=== PATIENT | female | born 1985 | race Caucasian/White ===

== ENCOUNTER 2023-08-26 18:58 | Inpatient (IN) | payer BC, SELFPAY ==
[2023-08-26] VITALS (15 sets, daily range): BP systolic 146–172; BP diastolic 84–98; PULSE 69–83; BMI 40.3
[2023-08-26 17:16] LABS: Basophils Percent Auto 0.4 % (0.2-1.2); Eosinophils Absolute Auto 0.1 K/mm3 (0-0.3); Hematocrit 30.6 % (37.0-47.0); Hemoglobin 10.2 g/dL (12.0-15.0); Immature Granulocyte Percent A 2.6 % (0-0.5); Lymphocytes Absolute Auto 1.79 K/mm3 (0.9-3.2); Lymphocytes Percent Auto 15.8 % (18.3-44.2); Mean Corpuscular HGB Conc 33.3 g/dl (32-36); Mean Corpuscular Hemoglobin 30.1 pg (26-34); Mean Corpuscular Volume 90.3 fl (80-100); Mean Platelet Volume 11.4 fl (7.4-10.4); Monocytes Absolute Auto 0.7 K/mm3 (0.1-0.6); Monocytes Percent Auto 6.1 % (2.6-8.5); Neutrophils Absolute Auto 8.4 K/mm3 (1.3-6.7); Neutrophils Percent Auto 74.1 % (45.5-73.1); Platelet Count Result 183 k/mm3 (150-375); Red Blood Count 3.39 M/mm3 (4.2-5.4); Red Cell Distribution Width 14.4 % (11.5-14.5); White Blood Count 11.4 K/mm3 (4.5-10.0)
[2023-08-26 17:23] LABS: Appearance Urine Cloudy (Clear); Bacteria Urine 1+ /hpf; Bilirubin Urine Negative (Negative); Blood Urine Negative (Negative); Color Urine Yellow (Yellow); Glucose Urine UA Negative (Negative); Ketones Urine Negative (Negative); Leukocyte Esterase Ur 3+ LEU/UL (NEGATIVE); Nitrate Urine Negative (Negative); Non Pathogenic Casts 0-2; Protein Urine Trace mg/dL (Negative); RBC Urine 0-2 /hpf (0-2); Specific Grav Ur 1.019 (1.001-1.035); Squamous Epithelial Cell Urine Few /hpf (Few); Urobilinogen Urine 0.2 mg/dL (<2.0); pH Urine 6.5 (5.0-9.0)
[2023-08-26 17:24] LABS: Add Urine Microscopic? YES
[2023-08-26 17:25] LABS: Alanine Aminotransferase 28 U/L (6-35); Albumin Level 3.5 g/dL (3.5-5.1); Alkaline Phosphatase 150 U/L (38-126); Anion Gap 4 mmol/L (8-16); Aspartate Amino Transferase 29 U/L (14-36); Bilirubin,Total 0.4 mg/dL (0.2-1.3); Blood Urea Nitrogen 11 mg/dL (7-17); Calcium 9.3 mg/dL (8.4-10.2); Carbon Dioxide 24 mmol/L (22-30); Chloride 104 mmol/L (98-107); Creatinine Urine 117.8 mg/dL; Estimated Glomerular Filt Rate > 60; Glucose 85 mg/dL (65-110); Potassium 3.7 mmol/L (3.4-5.0); Sodium 132 mmol/L (137-145); Total Protein Urine Random 19 mg/dL; Ur Ttl Prot Creatinine Ratio 0.16 mg/mg (0-0.20); Uric Acid 5.7 mg/dL (2.5-7.5)
[2023-08-26] MEDS: NIFEdipine 30 MG TAB.ER.24 PO (19:02)
--- NOTE | 2023-08-26 19:25 | LDADM ---
This patient, Isela Nowak, was admitted to [facility] on 08/26/23 at 18:58. Plans for labor, pain management and were discussed with patient. Patient/family oriented to hospital policies and general routines including ID bracelet, bed and alarms, visiting hours, pain management, procedures, bathroom and other care routines, personal items, smoking policy, room service/diet and guest tray routines, infant security routines, and visiting hours. Patient/Family are encouraged to report perceived risks to care and to ask questions if they do not understand what they are told or what they should do. See OBIX for further documentation.
[2023-08-26 20:41] LABS: Glucose Point of Care 73 mg/dl (65-105)
[2023-08-26] MEDS: SODIUM CHLORIDE 0.9% IV 250 ML 100 ML IV CONT (21:44)
[2023-08-26] MEDS: cefTRIAXone 1 GM in DEXTROSE 5% IN WATER 50 ML IVPB (21:46)
--- NOTE | 2023-08-26 21:50 | PC.NURSE ---
1858: Dr. Chowdhury notified of pt status, orders obtained. instructed to admit pt with plans of a repeat c/s at 12:30pm on 08/27/23. 2030: instructed by Dr. Chowdhury to check blood pressures q 1 hour as long as under 160/110. instructed to let patient eat dinner and give bedtime dose of insulin, instructed to make pt NPO after 0000. instructed to check blood sugar in AM and hold morning insulin.
[2023-08-26] MEDS: INSULIN HUMAN NPH (*BKC) 100 UNITS/ML 10 UNITS SUB-Q (22:53)
[2023-08-27] VITALS (174 sets, daily range): BP systolic 86–171; BP diastolic 42–104; PULSE 44–124; RESP 14–20; TEMP 36.2–37.1; O2SAT 88–100
[2023-08-27] MEDS: LACTATED RINGERS 1,000 ML 75 ML IV CONT ×2 (01:04→12:22)
[2023-08-27] MEDS: MAGNESIUM SULF 4 GM/WATER100ML 4 GM/100 ML BAG IVPB (01:04)
[2023-08-27] MEDS: MAGNESIUM SULF 20GM/WATER500ML 500 ML 50 MG IV CONT ×2 (01:36→11:30)
[2023-08-27 07:01] LABS: Glucose Point of Care 85 mg/dl (65-105)
--- NOTE | 2023-08-27 07:46 | PM.IMHP ---
H&P: HPI History of Present Illness Date/Time: 08/27/23 07:46 Chief Complaint: preeclampsia with severe features Review of Systems Review of Systems: All systems reviewed & are unremarkable except as noted in HPI and below PMFSH Family History Family History Grandparent Hypertension Father Hypertension Grandparent Bladder cancer Mother Lung cancer Social History Social History Smoking status: Never smoker Substance use: never Lack of Transportation: No Lack of Food: Never True Current Housing: I Have Housing Concerned About Future Housing: No Difficulty Paying Gas/Electric Bills: No Difficulty Paying for Meds: No Currently Unemployed: No Education: Master's Degree or Higher Difficulty w/ Childcare or Family Care: No Spiritual care concerns: No Meds Home Medications and Allergies Home Medications Medication Instructions Recorded Confirmed Type prenat.vits,drea,ihl-[id number] 1 tablet BID 08/20/23 08/26/23 History sertraline 100 mg tablet (Zoloft) 100 mg PO DAILY 08/20/23 08/26/23 History insulin NPH isoph U-100 human 100 5 - 10 unit subcut DAILY 08/26/23 08/26/23 History unit/mL subcutaneous suspension (Humulin N NPH U-100 Insulin (isophane susp)) Allergies Allergy/AdvReac Type Severity Reaction Status Date / Time No Known Allergies Allergy Mild Verified 12/16/18 12:32 Vital Signs Vital Signs - 24 hr 08/26/23 17:08 08/26/23 17:16 08/26/23 17:31 Temperature Pulse Rate 77 71 83 Respiratory Rate Blood Pressure 158/98 H 161/84 H 151/86 H Pulse Oximetry Oxygen Delivery 08/26/23 17:46 08/26/23 18:00 08/26/23 18:18 Temperature Pulse Rate 80 82 77 Respiratory Rate Blood Pressure 148/86 H 157/86 H 166/91 H Pulse Oximetry Oxygen Delivery 08/26/23 18:31 08/26/23 18:46 08/26/23 19:39 Temperature Pulse Rate 77 77 69 Respiratory Rate Blood Pressure 148/91 H 159/89 H 161/92 H Pulse Oximetry Oxygen Delivery 08/26/23 19:49 08/26/23 20:01 08/26/23 20:16 Temperature Pulse Rate 73 78 76 Respiratory Rate Blood Pressure 159/93 H 172/97 H 146/86 H Pulse Oximetry Oxygen Delivery 08/26/23 21:30 08/26/23 22:31 08/26/23 23:01 Temperature Pulse Rate 69 74 74 Respiratory Rate Blood Pressure 150/98 H 158/98 H 150/96 H Pulse Oximetry Oxygen Delivery 08/27/23 00:01 08/27/23 00:07 08/27/23 00:16 Temperature Pulse Rate 86 86 75 Respiratory Rate Blood Pressure 171/99 H Pulse Oximetry Oxygen Delivery 08/27/23 00:31 08/27/23 00:34 08/27/23 01:01 Temperature Pulse Rate 81 85 75 Respiratory Rate Blood Pressure 162/104 H 167/93 H 155/87 H Pulse Oximetry Oxygen Delivery 08/27/23 01:16 08/27/23 01:19 08/27/23 01:24 Temperature Pulse Rate 86 Respiratory Rate Blood Pressure 153/83 H Pulse Oximetry 97 95 Oxygen Delivery 08/27/23 01:29 08/27/23 01:31 08/27/23 01:34 Temperature Pulse Rate 87 Respiratory Rate Blood Pressure 148/89 H Pulse Oximetry 96 96 Oxygen Delivery 08/27/23 01:39 08/27/23 01:44 08/27/23 01:46 Temperature Pulse Rate 88 Respiratory Rate Blood Pressure 142/76 H Pulse Oximetry 95 96 Oxygen Delivery 08/27/23 01:49 08/27/23 01:54 08/27/23 01:59 Temperature Pulse Rate Respiratory Rate Blood Pressure Pulse Oximetry 95 96 95 Oxygen Delivery 08/27/23 02:01 08/27/23 02:04 08/27/23 02:09 Temperature Pulse Rate 91 Respiratory Rate Blood Pressure 124/77 Pulse Oximetry 94 94 Oxygen Delivery 08/27/23 02:14 08/27/23 02:19 08/27/23 02:24 Temperature Pulse Rate Respiratory Rate Blood Pressure Pulse Oximetry 94 94 95 Oxygen Delivery 08/27/23 02:29 08/27/23 02:39 08/27/23 02:44 Temperature Pulse Rate Respiratory Rate Blood Pressure Pulse Oxime
[2023-08-27 08:27] LABS: Glucose Point of Care 94 mg/dl (65-105)
[2023-08-27] MEDS: SERTRALINE HCL 50 MG TABLET 100 MG PO (08:29)
[2023-08-27 10:57] LABS: Rapid Plasma Reagin Non-Reactive (NonReactive)
--- NOTE | 2023-08-27 11:14 | WPDANESEPPF ---
Anes - Initial Pre Proc Eval Procedure: Operation Date: 08/27/23 12:00 Proposed Procedures p Section - Minal Chowdhury MD Date/Time: 08/27/23 11:14 Surgeon: Minal Chowdhury MD Pre Op Diagnosis: PI Evaluation Patient Data Age: 38 Gender: F Height: 1.57 m Weight: 100 kg Last Vital Signs Temp 37.1 C 08/27/23 08:32 Pulse 85 08/27/23 11:01 Resp 18 08/27/23 01:16 BP 151/95 H 08/27/23 11:01 Pulse Ox 97 08/27/23 11:10 O2 Del Method Room Air 08/26/23 19:35 Allergies Allergy/AdvReac Type Severity Reaction Status Date / Time No Known Allergies Allergy Mild Verified 12/16/18 12:32 Home Medications Medication Instructions Recorded Confirmed Type prenat.vits,drea,fyi-tzkh-dexxu 1 tablet BID 08/20/23 08/26/23 History sertraline 100 mg tablet (Zoloft) 100 mg PO DAILY 08/20/23 08/26/23 History insulin NPH isoph U-100 human 100 5 - 10 unit subcut DAILY 08/26/23 08/26/23 History unit/mL subcutaneous suspension (Humulin N NPH U-100 Insulin (isophane susp)) Laboratory Tests 08/26/23 08/26/23 08/26/23 17:05 19:24 20:37 WBC 11.4 H K/mm3 (4.5-10.0) RBC 3.39 L M/mm3 (4.2-5.4) Hgb 10.2 L g/dL (12.0-15.0) Hct 30.6 L % (37.0-47.0) MCV 90.3 fl (80-100) MCH 30.1 pg (26-34) MCHC 33.3 g/dl (32-36) RDW 14.4 % (11.5-14.5) Plt Count 183 k/mm3 (150-375) MPV 11.4 H fl (7.4-10.4) Immature Gran % (Auto) 2.6 H % (0-0.5) Neut % (Auto) 74.1 H % (45.5-73.1) Lymph % (Auto) 15.8 L % (18.3-44.2) Kidder % (Auto) 6.1 % (2.6-8.5) Eos % (Auto) 1.0 % (0-4.4) Baso % (Auto) 0.4 % (0.2-1.2) Lymph # (Auto) 1.79 K/mm3 (0.9-3.2) Kidder # (Auto) 0.7 H K/mm3 (0.1-0.6) Eos # (Auto) 0.1 K/mm3 (0-0.3) Baso # (Auto) 0.0 K/mm3 (0.0-0.1) Abs Immat Gran (auto) 0.30 H K/mm3 (0.00-0.031) Absolute Neuts (auto) 8.4 H K/mm3 (1.3-6.7) Absolute Nucleated RBC 0.0 K/mm3 (0.0-0.012) Nucleated RBC % 0.0 % (0.0-0.2) Sodium 132 L mmol/L (137-145) Potassium 3.7 mmol/L (3.4-5.0) Chloride 104 mmol/L (98-107) Carbon Dioxide 24 mmol/L (22-30) Anion Gap 4 L mmol/L (8-16) BUN 11 mg/dL (7-17) Creatinine 0.60 L mg/dL (0.7-1.0) Estim Creat Clear Calc Not Reportable Estimated GFR > 60 (59 - ) Glucose 85 mg/dL (65-110) POC Capillary Glucose 73 mg/dl (65-105) Uric Acid 5.7 mg/dL (2.5-7.5) Calcium 9.3 mg/dL (8.4-10.2) Total Bilirubin 0.4 mg/dL (0.2-1.3) AST 29 U/L (14-36) ALT 28 U/L (6-35) Alkaline Phosphatase 150 H U/L (38-126) Total Protein 7.0 g/dL (6.3-8.2) Albumin 3.5 g/dL (3.5-5.1) Urine Color Yellow (Yellow) Urine Appearance Cloudy H (Clear) Urine pH 6.5 (5.0-9.0) Ur Specific [place] 1.019 (1.001-1.035) Urine Protein Trace mg/dL (Negative) Urine Glucose (UA) Negative mg/dL (Negative) Urine Ketones Negative mg/dL (Negative) Ur Blood (Man) Negative (Negative) Urine Nitrate Negative (Negative) Urine Bilirubin Negative (Negative) Urine Urobilinogen 0.2 mg/dL (<2.0) Ur Leukocyte Esterase 3+ H NIDIA/UL (NEGATIVE) Urine RBC 0-2 /hpf (0-2) Urine WBC 11-20 H /hpf (0-3) Ur Squamous Epith Cells Few /hpf (Few) Urine Bacteria 1+ H /hpf Urine Casts 0-2 U Random Total Protein 19 mg/dL Urine Creatinine 117.8 mg/dL Protein/Creat Ratio 2 0.16 mg/mg (0-0.20) RPR Non-reactive (NonReactive) Blood Ty
[2023-08-27] MEDS: ceFAZolin 2 GM/D5W 50 ML 2 GM/50 ML BAG IVPB (12:26)
--- NOTE | 2023-08-27 12:26 | PM.IMHP ---
H&P: HPI History of Present Illness Date/Time: 08/27/23 12:26 Chief Complaint: Preeclampsia Narrative: 38-year-old multiparous female with previous and preeclampsia. We have agreed to perform today. She understands the risks. She understands that injuries may occur as result in hospitalization, more surgery, severe illness. She understands risk of hemorrhage infection. She denies any chest pain shortness of breath. She denies any nausea, vomiting, fevers, chills. She denies any headaches, blurry vision, epigastric pain. Review of Systems Review of Systems: All systems reviewed & are unremarkable except as noted in HPI and below Constitutional: Constitutional: Denies chills, Denies fatigue, Denies fever(s) and Denies weakness Eyes: Eyes: Denies blurry vision, Denies change in vision, Denies loss of peripheral vision, Denies loss of vision, Denies other visual disturbances and Denies eye pain ENT: Denies vertigo, Denies dizziness, Denies hearing loss, Denies mouth pain, Denies nasal obstruction, Denies neck mass and Denies neck pain Cardiovascular: Cardiovascular: Denies chest pain, Denies diaphoresis, Denies syncope, Denies leg edema and Denies dyspnea Respiratory: Respiratory: Denies chest congestion, Denies cough, Denies hemoptysis, Denies dyspnea and Denies wheezing Gastrointestinal: Gastrointestinal: Denies abdominal pain, Denies constipation, Denies diarrhea, Denies nausea and Denies vomiting Genitourinary: Genitourinary: Denies hematuria, Denies change in libido, Denies nocturia, Denies genital lesions, Denies flank pain and Denies urinary urgency Musculoskeletal: Musculoskeletal: Denies abnormal gait, Denies back pain, Denies myalgias, Denies arthralgias, Denies joint swelling, Denies muscle weakness and Denies neck pain Integumentary/Breasts: Skin/Breast: Denies swelling, Denies breast pain, Denies breast mass, Denies dry skin, Denies nipple discharge, Denies unusual bruising and Denies jaundice Neurologic: Denies Neuro-related abnormal movements, Denies Abnormal speech present, Denies abnormal gait, Denies behavioral changes, Denies confusion, Denies vertigo, Denies dizziness, Denies syncope, Denies loss of vision, Denies memory loss, Denies convulsions and Denies weakness Psychiatric: Psychiatric: Denies abnormal sleep pattern, Denies behavioral changes, Denies change in libido, Denies confusion, Denies depression, Denies anhedonia and Denies memory loss Endocrine: Endocrine: Reports no additional endocrine complaints, Denies change in libido and Denies fatigue Hematologic/Lymphatic: Hematologic/Lymphatic: Reports no additional hematologic/lymphatic complaints Allergic/Immunologic: Allergic/Immunologic: Reports no additional allergic/immunologic complaints and Denies wheezing PMFSH Past Medical History Medical History (Updated 08/27/23 @ 11:15 by Dean Juarez MD) Diabetes in HTN (hypertension) Morbid obesity Surgical History Surgical History (Updated 08/27/23 @ 12:28 by Minal Chowdhury MD) History of section Family History Family History Grandparent Hypertension Father Hypertension Grandparent Bladder cancer Mother Lung cancer Social History Social History Smoking status: Never smoker Substance use: never Lack of Transportation: No Lack of Food: Never True Current Housing: I Have Housing Concerned About Future Housing: No Difficulty Paying Gas/Electric Bills: No Difficulty Paying for Meds: No Currently Unemployed: No Education: Master's Degree or Higher Difficulty w/ Childcare or Family Care: No Spiritual care concerns: No Meds Home Medications and Allergies Home Medications Medication Instructions Recorded Confirmed Type prenat.vits,drea,vyv-kcji-xrsrx 1 tablet BID 08/20/23 08/26/23 History sertraline 100 mg t
--- NOTE | 2023-08-27 12:28 | WPDHPUPDATE1 ---
History and Physical Update Update Date/Time: 08/27/23 12:28 History and Physical has been reviewed, including an updated exam of the patient. There are NO changes in the patient's condition. Risks, benefits, and alternatives have been discussed and questions answered. Patient agrees to proceed with procedure.
[2023-08-27] MEDS: KETOROLAC 30 MG/ML VIAL (*BKC) 15 MG IV PUSH (13:22)
--- NOTE | 2023-08-27 13:26 | P.OP_ITS ---
Procedure Note - Detailed Date of Procedure 08/27/23 Pre-op Diagnosis PIH Evaluation, preeclampsia,. previous Post-op Diagnosis Same Procedure Performed Low-transverse section Surgeon Minal Chowdhury MD Anesthesia Spinal Findings Normal gestational maternal anatomy, average size infant, normal Apgars. Description of Procedure The patient was taken the operating room. She was prepped and draped in dorsal supine position with a leftward tilt. This was done after spinal anesthetic was applied. A low-transverse skin incision was made and carried down till of the fascia with the knife. The fascial incision was made with the knife. The fasci al incision was extended laterally with De La Torre scissors. The fascia was tented upward superiorly and inferiorly the rectus muscles were dissected off bluntly. The rectus muscles were the midline. The preperitoneal fat and peritoneum were dissected open bluntly at the superior aspect of the rectus muscles. The peritoneal incision was extended superior and inferior with good position of bladder. The uterine incision was made with a scalpel down to the level of the amniotic cavity. The amniotic cavity was entered bluntly. The infant was delivered. The cord was clamped and cut and the infant was handed off to waiting pediatric staff. Cord bloods were obtained. The placenta was removed manually. The uterus was exteriorized. The uterus was cleared of all clots, debris and membranes. The uterus was closed in 0 Vicryl running lock fashion. An imbricating over a was placed along the incision line as well. The uterus was returned to the abdomen. The gutters were cleared of all clots and debris. The fascia was closed with 0 Vicryl running fashion. The subcutaneous tissue was irrigated pinpoint bleeders were cauterized. The skin was closed with subcuticular absorbable peng. The skin incision line was covered with glue. The patient tolerated the procedure well. She has taken recovery room in stable condition. Sponge lap and needle counts were correct x2. Urine Output 400 Complications No immediate complications Condition Stable Disposition PACU
[2023-08-27] MEDS: KETOROLAC 30 MG/ML VIAL (*BKC) IV PUSH (17:40)
--- NOTE | 2023-08-27 18:08 | OBPPTRN ---
1635-Patient transferred to post room #291 via stretcher. Support person present. Oriented to unit, room, information board, rooming in, admission packet and security measures. Patient verbalizes understanding.
[2023-08-27] MEDS: POLYSACCHARIDE IRON COMPLEX 150 MG CAPSULE PO (19:40)
[2023-08-27] MEDS: DOCUSATE SODIUM 100 MG CAPSULE PO (19:40)
[2023-08-27] MEDS: NIFEdipine 30 MG TAB.ER.24 60 MG PO (19:41)
[2023-08-27] MEDS: LABETALOL HCL INJ 100 MG/20 ML VIAL 20 MG IV PUSH (19:41)
[2023-08-27] MEDS: MAGNESIUM SULF 20GM/WATER500ML 500 ML 2 MG (21:03)
[2023-08-27] MEDS: DEXTROSE 5%/0.45% SOD CHL 1,000 ML 75 ML IV CONT (21:03)
[2023-08-27] MEDS: HYDROcodone/acetaminophen (*CRX) 10-325 MG TABLET 1 TAB PO (21:30)
[2023-08-28] MEDS: HYDROcodone/acetaminophen (*CRX) 10-325 MG TABLET 1 TAB PO ×2 (03:52→17:30)
[2023-08-28] MEDS: IBUPROFEN 600 MG TABLET PO ×3 (03:52→23:08)
[2023-08-28 04:00] VITALS: BP 143/93; PULSE 96; RESP 16; TEMP 36.7; O2SAT 100
--- NOTE | 2023-08-28 05:47 | PM.OBPNVD ---
OB - PN: Subj Subjective Date/time seen: 08/28/23 05:47 Interval history: pp day 1 rpt section preeclampsia with severe features blood pressures labile no complaints no flatus yet magnesium sulfate x 24 hours post delivery OB - PN: Obj Data Labs 08/26/23 17:05 08/26/23 17:05 Labs: Laboratory Results - last 24 hr 08/26/23 08/26/23 08/27/23 19:24 22:52 08:25 POC Capillary Glucose 85 94 RPR Non-reactive OB - PN A/P Plan day: 1 Plan: routine care Time Spent With Patient Time: Total time spent is greater than 50% in coordination of care (as documented) at patient's floor/unit and/or counseling patient: Review of Systems Review of Systems: All systems reviewed & are unremarkable except as noted in HPI and below Exam Const: General: cooperative, healthy appearing and comfortable Chest: Chest palpation & inspection: normal inspection of the chest Resp: Effort & Inspection: normal respiratory effort Cardio: Rate: regular rate Rhythm: regular rhythm GI: Other: incision CDI Skin: General skin exam: normal color Neuro: General: patient oriented x3 Extrem: Right lower extremity: normal to inspection Left lower extremity: normal to inspection Psych: Appearance: grossly normal
[2023-08-28 05:54] LABS: Basophils Percent Auto 0.4 % (0.2-1.2); Eosinophils Percent Auto 0.3 % (0-4.4); Hematocrit 32.8 % (37.0-47.0); Hemoglobin 10.5 g/dL (12.0-15.0); Immature Granulocyte Absolute 0.17 K/mm3 (0.00-0.031); Immature Granulocyte Percent A 1.6 % (0-0.5); Lymphocytes Absolute Auto 1.19 K/mm3 (0.9-3.2); Lymphocytes Percent Auto 11.5 % (18.3-44.2); Mean Corpuscular Hemoglobin 29.7 pg (26-34); Mean Corpuscular Volume 92.9 fl (80-100); Monocytes Absolute Auto 0.6 K/mm3 (0.1-0.6); Neutrophils Absolute Auto 8.3 K/mm3 (1.3-6.7); Neutrophils Percent Auto 80.2 % (45.5-73.1); Platelet Count Result 190 k/mm3 (150-375); Red Blood Count 3.53 M/mm3 (4.2-5.4); Red Cell Distribution Width 14.5 % (11.5-14.5); White Blood Count 10.4 K/mm3 (4.5-10.0)
[2023-08-28 07:10] VITALS: BP 135/89; PULSE 96; RESP 18; TEMP 36.5; O2SAT 97
[2023-08-28] MEDS: MAGNESIUM SULF 20GM/WATER500ML 500 ML 50 MG IV CONT (08:30)
[2023-08-28] MEDS: MULTIVIT/MIN/PREN/FOL AC/IRON TABLET 1 TAB PO (08:43)
[2023-08-28] MEDS: DOCUSATE SODIUM 100 MG CAPSULE PO ×2 (08:43→17:30)
[2023-08-28] MEDS: SERTRALINE HCL 50 MG TABLET 100 MG PO (08:43)
[2023-08-28] MEDS: NIFEdipine 30 MG TAB.ER.24 60 MG PO (08:43)
[2023-08-28] MEDS: DEXTROSE 5%/0.45% SOD CHL 1,000 ML 75 ML IV CONT (09:02)
[2023-08-28 10:00] VITALS: BP 135/89; PULSE 96; RESP 18; TEMP 36.5; O2SAT 97
[2023-08-28 11:20] VITALS: BP 144/85; PULSE 98; RESP 16; TEMP 36.8; O2SAT 98
--- NOTE | 2023-08-28 11:40 | WPDANLDPN2 ---
Anes-Prog Note L&D Date/Time: 08/28/23 11:40 Comfortable throughout: section Neuraxial method: epidural Neuro status: Neuro function grossly intact.catheter still in place. plan to remove at 1300 Cardiovascular status: normal Respiratory status: normal Airway patency: baseline Mental status: baseline Post-Op hydration status: normal Vital Signs: Last Vital Signs Temp 36.7 C 08/28/23 04:00 Pulse 96 08/28/23 04:00 Resp 16 08/28/23 04:00 BP 143/93 H 08/28/23 04:00 Pulse Ox 100 08/28/23 04:00 O2 Del Method Room Air 08/28/23 04:00 O2 Flow Rate 1 08/27/23 14:05 Pain score (VAS): 0 I/O: Intake & Output 08/27/23 08/28/23 08/28/23 23:59 07:59 15:59 Intake Total 240 2000 1000 Output Total 1700 3350 Balance -1460 -1350 1000 Post-procedural complaints: none Patient feedback: Patient satisfied with anesthetic care.
--- NOTE | 2023-08-28 11:40 | WPDANLDNPN2 ---
Anes-Prog Note L&D-Neuraxial Date/Time: 08/28/23 11:40 Neuraxial medications: epidural PF morphine Opiod-related complaints: none Patient feedback: Patient satisfied with post-operative pain management.
--- NOTE | 2023-08-28 14:00 | PC.NURSE ---
Urinary catheter removed.
[2023-08-28 15:40] VITALS: BP 148/95; PULSE 87
[2023-08-28 19:15] VITALS: BP 145/87; PULSE 82; TEMP 35.9
[2023-08-28] MEDS: HYDROcodone/acetaminophen (*CRX) 5-325 MG TABLET 1 TAB PO (23:07)
[2023-08-29] VITALS (8 sets, daily range): BP systolic 130–160; BP diastolic 80–104; PULSE 68–90; RESP 16–18; TEMP 35.8–37.3; O2SAT 97–100
[2023-08-29] MEDS: HYDROcodone/acetaminophen (*CRX) 10-325 MG TABLET 1 TAB PO (05:57)
[2023-08-29] MEDS: IBUPROFEN 600 MG TABLET PO ×2 (05:57→16:24)
[2023-08-29] MEDS: NIFEdipine 30 MG TAB.ER.24 60 MG PO ×2 (09:17→21:54)
[2023-08-29] MEDS: MULTIVIT/MIN/PREN/FOL AC/IRON TABLET 1 TAB PO (09:17)
[2023-08-29] MEDS: SERTRALINE HCL 50 MG TABLET 100 MG PO (09:17)
[2023-08-29] MEDS: DOCUSATE SODIUM 100 MG CAPSULE PO ×2 (09:17→16:23)
--- NOTE | 2023-08-29 09:40 | PM.OBPNVD ---
OB - PN: Subj Subjective Date/time seen: 08/29/23 09:40 Interval history: pp day 2 rpt section preeclampsia with severe features \denies negrete, visual changes, epigastric pain blood pressures labile no complaints flatus present OB - PN: Obj Data Labs 08/28/23 03:30 08/26/23 17:05 OB - PN A/P Plan day: 2 Plan: discharge home Time Spent With Patient Time: Total time spent is greater than 50% in coordination of care (as documented) at patient's floor/unit and/or counseling patient: Review of Systems Review of Systems: All systems reviewed & are unremarkable except as noted in HPI and below Exam Const: General: cooperative and healthy appearing Chest: Chest palpation & inspection: normal inspection of the chest Resp: Effort & Inspection: normal respiratory effort Cardio: Rate: regular rate Rhythm: regular rhythm GI: Other: Incision CDI Skin: General skin exam: normal color Neuro: General: patient oriented x3 Extrem: Right lower extremity: edema Left lower extremity: edema Psych: Appearance: grossly normal
[2023-08-29] MEDS: HYDROcodone/acetaminophen (*CRX) 5-325 MG TABLET 1 TAB PO (16:23)
[2023-08-29] MEDS: LANOLIN (LANSINOH) 7.5 GM CREAM 1 APPLIC TOPICAL (16:24)
[2023-08-30 04:30] VITALS: BP 141/94; PULSE 73; RESP 16; TEMP 36.4; O2SAT 97
[2023-08-30] MEDS: IBUPROFEN 600 MG TABLET PO (08:20)
[2023-08-30] MEDS: DOCUSATE SODIUM 100 MG CAPSULE PO (08:21)
[2023-08-30] MEDS: MULTIVIT/MIN/PREN/FOL AC/IRON TABLET 1 TAB PO (08:21)
[2023-08-30] MEDS: HYDROcodone/acetaminophen (*CRX) 10-325 MG TABLET 1 TAB PO (08:22)
[2023-08-30] MEDS: SERTRALINE HCL 50 MG TABLET 100 MG PO (08:22)
[2023-08-30] MEDS: NIFEdipine 30 MG TAB.ER.24 60 MG PO (08:25)
[2023-08-30 08:35] VITALS: BP 144/87; PULSE 85; RESP 18; TEMP 36.3; O2SAT 100
--- NOTE | 2023-08-30 08:44 | PM.OBPNVD ---
OB - PN: Subj Subjective Date/time seen: 08/30/23 08:44 Interval history: pp day 2 rpt section preeclampsia with severe features \denies negrete, visual changes, epigastric pain blood pressures labile no complaints flatus present Patient comments: no complaints, pain well controlled, incisional pain, tolerating diet and flatus present OB - PN: Obj Data Labs 08/28/23 03:30 08/26/23 17:05 OB - PN A/P Plan day: 4 Plan: routine care, discharge home and other Comments: Incision check in one week. Given precautions Time Spent With Patient Time: Total time spent is greater than 50% in coordination of care (as documented) at patient's floor/unit and/or counseling patient: Exam Const: General: comfortable, no acute distress and alert Resp: Effort & Inspection: normal respiratory effort Auscultation: no crackles, no rales and no rhonchi Cardio: Rate: regular rate Heart sounds: no click, no murmurs and no rubs GI: Inspection: non-distended GI Palp: No Tenderness to palpation present (GI) Auscultation: normal bowel sounds Other: Incision - CDI Extrem: General: normal to inspection, no pedal edema and no calf tenderness
--- NOTE | 2023-08-30 08:45 | PM.OBDSVD ---
DS: Admitting Diagnosis Discharge Date 08/30/23 Admitting Diagnosis term OB - DS: Summary OB Procedures : None OB Procedures Intrapartum: OB Procedures: : None Peripartum Data Procedures: Procedures Operation Date: 08/27/23 12:00 Actual Procedure Side Surgeon p Section Minal Chowdhury MD Time Spent with Patient Time attestation: Total time spent providing and/or coordinating discharge services: Discharge Plan Discharge Discharging Clinician: Minal Chowdhury Patient Disposition: Home, Self-Care Activity: pelvic rest Diet: regular Patient Instructions: Antibiotic Form Stand Alone Forms: General Discharge Information Follow-up/Referrals: Minal Chowdhury MD [Physician] - Discharge Medications: New oxycodone-acetaminophen 5-325 mg tablet 1 tablet PO Q4H PRN (Reason: pain) Qty: 25 0RF Continued sertraline [Zoloft] 100 mg Tablet 100 mg PO DAILY #2 Tablet 1 tablet BID Humulin N NPH U-100 Insulin 100 unit/mL suspension 5 - 10 unit SUBCUT DAILY Date of admission: 08/26/23 18:58 Primary Care Provider: Chandana,Nena Antoine Admitting Provider: Minal Chowdhury Attending physician on admission: Minal Chowdhury Condition: Stable
--- NOTE | 2023-08-30 12:41 | PC.NURSE ---
[id number] Introductions were made, then consulted with patient to assess needs related to . Mother led the conversation with her?plans to feed?her infant with breast/bottle, history and the?experience so far as being better than her first child. Resources provided for inpatient and outpatient services with name written on the white board. Reviewed protecting her milk supply. Mother states she is without pain other than the initial discomfort. Mother voiced understanding of information, was not receptive to consult and will call if there is a request for assistance.
[2023-09-01 13:50] VITALS: BP 156/118; PULSE 84; RESP 18; TEMP 36.9; O2SAT 100
== END 2023-08-30 14:55 | disposition home or self-care (01) | DRG 788 ==
LOC: ANHOBOP 18:59 → ANHLDR 18:59 → ANHOBPP 19:19 → ANHOB2 08-27 16:40
PROVIDERS: Obstetrics & Gynecology; Admitting Provider Obstetrics & Gynecology; PCP Internal Medicine; Visit Provider Obstetrics & Gynecology
PROC: 10D00Z1 Extraction of Products of Conception, Low, Open Approach (ICD-10-PCS; CPT 59514; principal; 2023-08-27 12:00)
DX: O14.14 Severe pre-eclampsia complicating childbirth (principal); Z37.0 Single live birth; Z3A.37 37 weeks gestation of pregnancy; O24.429 Gestational diabetes mellitus in childbirth, unspecified control; O34.211 Maternal care for low transverse scar from previous cesarean delivery
CPT/HCPCS: 36415; 59025; 80053; 81001; 82570; 82948; 84156; 84550; 85025; 86592; 86850; 86900; 86901; 87086; A9270; J0690; J0696; J1815; J1885; J1940; J2274; J2405; J2590; J3475; J7050; J7120

== ENCOUNTER 2023-09-01 15:26 | Observation (INO) | payer BC, SELFPAY ==
[2023-09-01] VITALS (118 sets, daily range): BP systolic 123–189; BP diastolic 63–106; PULSE 31–112; TEMP 36.3; O2SAT 77–100
[2023-09-01] MEDS: NIFEdipine 30 MG TAB.ER.24 60 MG PO ×2 (14:51→23:41)
[2023-09-01 15:06] LABS: Basophils Absolute Auto 0.1 K/mm3 (0.0-0.1); Basophils Percent Auto 0.7 % (0.2-1.2); Eosinophils Absolute Auto 0.3 K/mm3 (0-0.3); Eosinophils Percent Auto 2.9 % (0-4.4); Hematocrit 32.1 % (37.0-47.0); Immature Granulocyte Absolute 0.18 K/mm3 (0.00-0.031); Immature Granulocyte Percent A 2.1 % (0-0.5); Lymphocytes Absolute Auto 1.72 K/mm3 (0.9-3.2); Lymphocytes Percent Auto 19.9 % (18.3-44.2); Mean Corpuscular HGB Conc 31.2 g/dl (32-36); Mean Corpuscular Hemoglobin 28.7 pg (26-34); Mean Corpuscular Volume 92.2 fl (80-100); Mean Platelet Volume 10.5 fl (7.4-10.4); Monocytes Absolute Auto 0.6 K/mm3 (0.1-0.6); Monocytes Percent Auto 6.4 % (2.6-8.5); Neutrophils Absolute Auto 5.9 K/mm3 (1.3-6.7); Platelet Count Result 235 k/mm3 (150-375); Red Blood Count 3.48 M/mm3 (4.2-5.4); Red Cell Distribution Width 14.2 % (11.5-14.5); White Blood Count 8.7 K/mm3 (4.5-10.0)
[2023-09-01 15:20] LABS: Alanine Aminotransferase 38 U/L (6-35); Albumin Level 3.7 g/dL (3.5-5.1); Alkaline Phosphatase 98 U/L (38-126); Anion Gap 4 mmol/L (8-16); Aspartate Amino Transferase 37 U/L (14-36); Bilirubin,Total 0.4 mg/dL (0.2-1.3); Blood Urea Nitrogen 14 mg/dL (7-17); Calcium 8.9 mg/dL (8.4-10.2); Carbon Dioxide 26 mmol/L (22-30); Chloride 105 mmol/L (98-107); Estimated Glomerular Filt Rate > 60; Glucose 81 mg/dL (65-110); Sodium 135 mmol/L (137-145); Uric Acid 4.6 mg/dL (2.5-7.5)
[2023-09-01] MEDS: LABETALOL HCL INJ 100 MG/20 ML VIAL 20 MG IV PUSH (15:47)
--- NOTE | 2023-09-01 18:03 | PM.IMHP ---
H&P: HPI History of Present Illness Date/Time: 09/01/23 18:03 Chief Complaint: pt delivered 08/27/23 by repeat section for preeclampsia ans was treated for 24 hours post delivery with magnesium sulfate. By end of stay blood pressures were being managed with procardia 60XLmg BID. pt did not receive rx for home use of procardia and arrived for follow up today with severe range blood pressures and was asymptomatic, without headache, visual changes and epigastric pain. Labetalol 20mg was given IV and was restarted on procardia 60mg XL BID, Review of Systems Review of Systems: All systems reviewed & are unremarkable except as noted in HPI and below PMFSH Past Medical History Medical History (Updated 08/30/23 @ 08:47 by Minal Chowdhury MD) Diabetes in HTN (hypertension) Morbid obesity Surgical History Surgical History (Updated 08/27/23 @ 12:28 by Minal Chowdhury MD) History of section Family History Family History Grandparent Hypertension Father Hypertension Grandparent Bladder cancer Mother Lung cancer Social History Social History Smoking status: Never smoker Substance use: never Lack of Transportation: No Lack of Food: Never True Current Housing: I Have Housing Concerned About Future Housing: No Difficulty Paying Gas/Electric Bills: No Difficulty Paying for Meds: No Currently Unemployed: No Education: Master's Degree or Higher Difficulty w/ Childcare or Family Care: No Spiritual care concerns: No Meds Home Medications and Allergies Home Medications Medication Instructions Recorded Confirmed Type prenat.vits,drea,dxt-fvcs-[id number] 1 tablet BID 08/20/23 08/26/23 History sertraline 100 mg tablet (Zoloft) 100 mg PO DAILY 08/20/23 08/26/23 History insulin NPH isoph U-100 human 100 5 - 10 unit subcut DAILY 08/26/23 08/26/23 History unit/mL subcutaneous suspension (Humulin N NPH U-100 Insulin (isophane susp)) oxycodone-acetaminophen 5 mg-325 1 tablet PO Q4H PRN pain #25 tabs 08/30/23 Rx mg tablet Allergies Allergy/AdvReac Type Severity Reaction Status Date / Time No Known Allergies Allergy Mild Verified 12/16/18 12:32 Vital Signs Vital Signs - 24 hr 09/01/23 15:00 09/01/23 15:01 09/01/23 15:23 Pulse Rate 82 86 73 Blood Pressure 162/106 H 167/102 H 189/106 H Pulse Oximetry 09/01/23 15:46 09/01/23 15:51 09/01/23 15:56 Pulse Rate 75 80 Blood Pressure 159/99 H 151/94 H Pulse Oximetry 98 95 09/01/23 16:01 09/01/23 16:06 09/01/23 16:11 Pulse Rate 79 76 Blood Pressure 148/89 H 151/92 H Pulse Oximetry 96 94 95 09/01/23 16:16 09/01/23 16:21 09/01/23 16:26 Pulse Rate 82 Blood Pressure 143/92 H Pulse Oximetry 96 95 97 09/01/23 16:30 09/01/23 16:35 09/01/23 16:40 Pulse Rate Blood Pressure Pulse Oximetry 97 97 98 09/01/23 16:45 09/01/23 16:50 09/01/23 16:51 Pulse Rate 87 Blood Pressure 135/98 H Pulse Oximetry 98 98 09/01/23 16:55 09/01/23 17:00 09/01/23 17:01 Pulse Rate 83 Blood Pressure 148/87 H Pulse Oximetry 98 96 09/01/23 17:05 09/01/23 17:10 09/01/23 17:11 Pulse Rate 90 Blood Pressure 123/106 H Pulse Oximetry 97 98 09/01/23 17:15 09/01/23 17:20 09/01/23 17:21 Pulse Rate 85 Blood Pressure 135/79 Pulse Oximetry 98 98 09/01/23 17:25 09/01/23 17:30 09/01/23 17:31 Pulse Rate 90 Blood Pressure 141/84 H Pulse Oximetry 97 97 09/01/23 17:35 09/01/23 17:40 09/01/23 17:41 Pulse Rate 91 Blood Pressure 149/103 H Pulse Oximetry 97 98 09/01/23 17:49 09/01/23 17:54 09/01/23 17:56 Pulse Rate Blood Pressure Pulse Oximetry 98 100 98 09/01/23 18:00 09/01/23 18:01 09/01/23 18:02 Pulse Rate 77 79 Blood Pressure 156/81 H 143/93 H Pulse Oximetry 99 09/01/23 15:47 Pulse Rate 75 Blood Pressure
[2023-09-01] MEDS: HYDROcodone/acetaminophen (*CRX) 5-325 MG TABLET 1 TAB PO (20:34)
[2023-09-02 01:43] VITALS: BP 150/107; PULSE 94
[2023-09-02 01:46] VITALS: BP 145/96; PULSE 91
--- NOTE | 2023-09-02 04:08 | PM.OBPNVD ---
OB - PN: Subj Subjective Date/time seen: 09/02/23 04:08 Interval history: pt admitted overnight for blood pressure monitoring. today day 6 from repeat section for preeclampsia with severe features. blood pressures have stabilized. no severe range pressures overnight. pt currently being managed on procardia 60XL mg BID OB - PN: Obj Data Labs 09/01/23 14:56 09/01/23 14:56 Labs: Laboratory Results - last 24 hr 09/01/23 14:56 WBC 8.7 RBC 3.48 L Hgb 10.0 L Hct 32.1 L MCV 92.2 MCH 28.7 MCHC 31.2 L RDW 14.2 Plt Count 235 MPV 10.5 H Immature Gran % (Auto) 2.1 H Neut % (Auto) 68.0 Lymph % (Auto) 19.9 [place] % (Auto) 6.4 Eos % (Auto) 2.9 Baso % (Auto) 0.7 Lymph # (Auto) 1.72 [place] # (Auto) 0.6 Eos # (Auto) 0.3 Baso # (Auto) 0.1 Abs Immat Gran (auto) 0.18 H Absolute Neuts (auto) 5.9 Absolute Nucleated RBC 0.0 Nucleated RBC % 0.0 Sodium 135 L Potassium 4.0 Chloride 105 Carbon Dioxide 26 Anion Gap 4 L BUN 14 Creatinine 0.50 L Estim Creat Clear Calc Not Reportable Estimated GFR > 60 Glucose 81 Uric Acid 4.6 Calcium 8.9 Total Bilirubin 0.4 AST 37 H ALT 38 H Alkaline Phosphatase 98 Total Protein 7.0 Albumin 3.7 OB - PN A/P Assessment and Plan (1) Preeclampsia: Code(s): O14.90 - Unspecified pre-eclampsia, unspecified trimester Status: Acute (2) Previous delivery, delivered: Code(s): O34.219 - Maternal care for unspecified type scar from previous delivery Status: Acute (3) Post-op pain: Code(s): G89.18 - Other acute postprocedural pain Status: Acute Plan day 6 blood pressures stable if labs stable plan to d/c home with procardia 60mg XL BID f/u in office tomorrow for incision and blood pressure check Time Spent With Patient Time: Total time spent is greater than 50% in coordination of care (as documented) at patient's floor/unit and/or counseling patient: Review of Systems Review of Systems: All systems reviewed & are unremarkable except as noted in HPI and below Exam Const: General: cooperative, healthy appearing and comfortable Chest: Chest palpation & inspection: normal inspection of the chest Resp: Effort & Inspection: normal respiratory effort Cardio: Rate: regular rate Rhythm: regular rhythm GI: Other: incision CDI Back/Spine/Pelvis: Back: no CVA tenderness Skin: General skin exam: normal color Neuro: General: patient oriented x3 Extrem: Right lower extremity: edema Left lower extremity: edema Psych: Appearance: grossly normal
[2023-09-02 05:33] VITALS: BP 150/88; PULSE 86
[2023-09-02] MEDS: IBUPROFEN 600 MG TABLET PO (05:34)
[2023-09-02 05:44] LABS: Basophils Percent Auto 0.4 % (0.2-1.2); Eosinophils Absolute Auto 0.2 K/mm3 (0-0.3); Hematocrit 34.6 % (37.0-47.0); Hemoglobin 11.2 g/dL (12.0-15.0); Immature Granulocyte Absolute 0.19 K/mm3 (0.00-0.031); Immature Granulocyte Percent A 2.6 % (0-0.5); Lymphocytes Absolute Auto 1.64 K/mm3 (0.9-3.2); Mean Corpuscular HGB Conc 32.4 g/dl (32-36); Mean Corpuscular Hemoglobin 29.5 pg (26-34); Mean Corpuscular Volume 91.1 fl (80-100); Mean Platelet Volume 9.9 fl (7.4-10.4); Monocytes Absolute Auto 0.4 K/mm3 (0.1-0.6); Monocytes Percent Auto 5.4 % (2.6-8.5); Neutrophils Percent Auto 66.6 % (45.5-73.1); Platelet Count Result 233 k/mm3 (150-375); Red Cell Distribution Width 14.5 % (11.5-14.5); White Blood Count 7.4 K/mm3 (4.5-10.0)
[2023-09-02 05:58] LABS: Alanine Aminotransferase 38 U/L (6-35); Albumin Level 3.8 g/dL (3.5-5.1); Alkaline Phosphatase 100 U/L (38-126); Anion Gap 7 mmol/L (8-16); Aspartate Amino Transferase 35 U/L (14-36); Bilirubin,Total 0.4 mg/dL (0.2-1.3); Blood Urea Nitrogen 9 mg/dL (7-17); Carbon Dioxide 23 mmol/L (22-30); Chloride 106 mmol/L (98-107); Estimated Glomerular Filt Rate > 60; Glucose 93 mg/dL (65-110); Potassium 3.7 mmol/L (3.4-5.0); Sodium 136 mmol/L (137-145); Uric Acid 4.6 mg/dL (2.5-7.5)
[2023-09-02 07:26] VITALS: BP 146/93; PULSE 97
--- NOTE | 2023-09-02 07:30 | PC.NURSE ---
Dr Chowdhury on unit, informed of BP and improvement of headache. Ok to dc home. Patient wishing to eat breakfast before discharge.
[2023-09-02 07:31] VITALS: BP 143/95; PULSE 96
[2023-09-02] MEDS: NIFEdipine 30 MG TAB.ER.24 60 MG PO (08:56)
--- NOTE | 2023-09-04 08:11 | PM.OBTRLD ---
OB - Triage/Final Diagnosis Visit Information Date of evaluation: 09/01/23 Reason for evaluation: other (elevated blood pressure) Comments/Additional reasons for admission: I have assessed the risk for this patient, Isela Nowak, and determined that she would benefit from observation care. Evaluation Laboratory results: Laboratory Tests 09/01/23 09/02/23 14:56 05:35 WBC 8.7 7.4 RBC 3.48 L 3.80 L Hgb 10.0 L 11.2 L Hct 32.1 L 34.6 L MCV 92.2 91.1 MCH 28.7 29.5 MCHC 31.2 L 32.4 RDW 14.2 14.5 Plt Count 235 233 MPV 10.5 H 9.9 Immature Gran % (Auto) 2.1 H 2.6 H Neut % (Auto) 68.0 66.6 Lymph % (Auto) 19.9 22.0 [place] % (Auto) 6.4 5.4 Eos % (Auto) 2.9 3.0 Baso % (Auto) 0.7 0.4 Lymph # (Auto) 1.72 1.64 [place] # (Auto) 0.6 0.4 Eos # (Auto) 0.3 0.2 Baso # (Auto) 0.1 0.0 Abs Immat Gran (auto) 0.18 H 0.19 H Absolute Neuts (auto) 5.9 5.0 Absolute Nucleated RBC 0.0 0.0 Nucleated RBC % 0.0 0.0 Sodium 135 L 136 L Potassium 4.0 3.7 Chloride 105 106 Carbon Dioxide 26 23 Anion Gap 4 L 7 L BUN 14 9 D Creatinine 0.50 L 0.50 L Estim Creat Clear Calc Not Reportable Not Reportable Estimated GFR > 60 > 60 Glucose 81 93 Uric Acid 4.6 4.6 Calcium 8.9 9.0 Total Bilirubin 0.4 0.4 AST 37 H 35 ALT 38 H 38 H Alkaline Phosphatase 98 100 Total Protein 7.0 7.0 Albumin 3.7 3.8
== END 2023-09-02 10:30 ==
LOC: ANHOBOP 15:46 → ANHOBPP 15:46
PROVIDERS: Advanced Practice Midwife; Admitting Provider Obstetrics & Gynecology; PCP Internal Medicine; Visit Provider Obstetrics & Gynecology
DX: O14.95 Unspecified pre-eclampsia, complicating the puerperium (principal); O34.219 Maternal care for unspecified type scar from previous cesarean delivery; G89.18 Other acute postprocedural pain; O24.439 Gestational diabetes mellitus in the puerperium, unspecified control; Z79.891 Long term (current) use of opiate analgesic; Z79.4 Long term (current) use of insulin; Z79.899 Other long term (current) drug therapy
CPT/HCPCS: 36415; 80053; 84550; 85025; 96374; A9270; G0378; G0379